=== PATIENT | female | born 1990 | race Caucasian/White ===

== ENCOUNTER 2016-11-07 11:34 | Emergency (ER) | payer SELFPAY ==
[2016-11-07 11:46] VITALS: BP 102/64
--- NOTE | 2016-11-07 11:47 | ER Document Report ---
ED Medical Screen (RME) - General Stated Complaint: SKIN PROBLEM Mode of Arrival: Ambulatory Information source: Patient Notes: Pt presents to the emergency department with reports of 3 abscesses two in between her breast and one on her left buttocks for the past week. Patient denies history of MRSA. I have greeted and performed a rapid initial assessment of this patient. A comprehensive ED assessment and evaluation of the patient, analysis of test results and completion of the medical decision making process will be conducted by additional ED providers. Physical Exam - Vital signs Vitals: Temp Pulse Resp BP Pulse Ox 98.7 F 95 14 102/64 98 11/07/16 11:45 11/07/16 11:45 11/07/16 11:45 11/07/16 11:45 11/07/16 11:45 Course - Vital Signs Vital signs: Temp Pulse Resp BP Pulse Ox 98.7 F 95 14 102/64 98 11/07/16 11:45 11/07/16 11:45 11/07/16 11:45 11/07/16 11:45 11/07/16 11:45
--- NOTE | 2016-11-07 13:04 | ER Document Report ---
ED Skin Rash/Insect Bite/Abscs - General Chief Complaint: Abscess Stated Complaint: SKIN PROBLEM Mode of Arrival: Ambulatory Notes: Patient is a 26 old female presents emergency Department with complaints of boil on her breast as well as her left buttock patient states that she has had a history of abscess under the left axilla which required surgical removal by a surgeon couple years ago. She states that the area on her breast has been there for about a week and is been draining on its own. On her buttocks and there for about 3 days increasing in size and pain. Denies any past medical or past surgical history. TRAVEL OUTSIDE OF THE [place] IN LAST 30 DAYS: No - Related Data Allergies/Adverse Reactions: tramadol Allergy (Verified 11/07/16 11:49) Past Medical History - General Information source: Patient - Social History Smoking Status: Current Every Day Smoker Chew tobacco use (# tins/day): Yes Family History: Reviewed & Not Pertinent Patient has suicidal ideation: No Patient has homicidal ideation: No Renal/ Medical History: Denies: Hx Peritoneal Dialysis Review of Systems - Review of Systems Constitutional: No symptoms reported EENT: No symptoms reported Cardiovascular: No symptoms reported Respiratory: No symptoms reported Gastrointestinal: No symptoms reported Genitourinary: No symptoms reported Female Genitourinary: No symptoms reported Musculoskeletal: No symptoms reported Skin: See HPI Hematologic/Lymphatic: No symptoms reported Neurological/Psychological: No symptoms reported Physical Exam - Vital signs Vitals: Temp Pulse Resp BP Pulse Ox 98.7 F 95 14 102/64 98 11/07/16 11:45 11/07/16 11:45 11/07/16 11:45 11/07/16 11:45 11/07/16 11:45 - Notes Notes: PHYSICAL EXAM GENERAL: Alert, interacts well. LUNGS: Clear to auscultation bilaterally, no wheezes, rales, or rhonchi. No respiratory distress. HEART: Regular rate and rhythm. No murmurs, gallops, or rubs. ABDOMEN: Soft, nondistended, nontender. No guarding, rebound, or rigidity.. Bowel sounds present in all 4 quadrants. EXTREMITIES: Moves all 4 extremities spontaneously. No edema, radial and dorsalis pedis pulses 2/4 bilaterally. No cyanosis. NEUROLOGICAL: Alert and oriented x4. Normal speech. PSYCH: Normal affect, normal mood. SKIN: Warm, dry, normal turgor. No rashes or lesions noted. - Genitourinary Female anatomy: 1 - abscess [id number] - Skin Location of irregularity: Chest - small draining area indurated, no fluctuance, mildly tender, scant drainage Course - Re-evaluation Re-evalutation: 11/07/16 14:41 Patient is a 26 female presents emergency Department with concerns for abscesses. Has a draining area on her chest that did not require I&D. Area within the left groin was incision and drained with minimal drainage irrigated with 30 mL of normal saline. Dressed with clean dry sterile dressing. Discussed with her care post I&D. Can follow-up with primary care - Vital Signs Vital signs: Temp Pulse Resp BP Pulse Ox 98.7 F 95 14 102/64 98 11/07/16 11:45 11/07/16 11:45 11/07/16 11:45 11/07/16 11:45 11/07/16 11:45 Procedures - Incision and Drainage Left Groin Type: Simple Anesthetic type: 1% Lidocaine mL's of anesthetic: 3 Blade size: 11 I&D procedure: Betadine prep applied Incision Method: Incision made with needle Amount/type of drainage: 2cc Discharge - Discharge Clinical Impression: Abscess Condition: Good Disposition: HOME, SELF-CARE Instructions: Abscess ([facility]), Cephalexin ([facility]), Post Incision and Drainage Prescriptions: Cephalexin Monohydrate [Keflex 500 mg Capsule] 500 mg PO QID #20 capsule Referrals: NICOLE LAST MD [ACTIVE STAFF] - Follow up as needed
[2016-11-07] MEDS ORDERED: LIDOCAINE 1% INJ-PF (10 MG/ML) 30 ML SDV INJ ONE (13:20)
== END 2016-11-07 14:56 | disposition home or self-care (01) ==
LOC: ER 11:34
PROC: 0H97XZZ Drainage of Abdomen Skin, External Approach (ICD-10-PCS; principal; 2016-11-07)
DX: L02.214 Cutaneous abscess of groin (principal); L02.213 Cutaneous abscess of chest wall; F17.210 Nicotine dependence, cigarettes, uncomplicated
CPT/HCPCS: 99283

== ENCOUNTER 2017-02-10 16:03 | Emergency (ER) | payer SELFPAY ==
[2017-02-10] MEDS ORDERED: OXYCODONE-ACETAMINOPHEN 5-325 MG TABLET PO ONE (16:19)
[2017-02-10] MEDS ORDERED: CEPHALEXIN 500 MG CAPSULE PO ONE (16:19)
[2017-02-10] MEDS ORDERED: LIDOCAINE 1% INJ-PF (10 MG/ML) 30 ML SDV INJ ONE (16:19)
--- NOTE | 2017-02-10 16:20 | ER Document Report ---
ED Skin Rash/Insect Bite/Abscs - General Chief Complaint: Abscess Stated Complaint: POSSIBLE ABSCESS/BUTT Time Seen by Provider: 02/10/17 16:13 Mode of Arrival: Ambulatory Information source: Patient TRAVEL OUTSIDE OF THE [place] IN LAST 30 DAYS: No - HPI Patient complains to provider of: Tender/swollen area - right groin Onset: Other - 3 days ago Onset/Duration: Gradual - Over the past 3 days, has been responding to heat but then returns and increases in size and tenderness. Quality of pain: Pressure, Throbbing Skin Character: Abscess Skin Temperature: Hot Quality of rash: Painful Identify cause: No Relieved by: Denies Similar symptoms previously: Yes - history of abscess that required I&D in October 2016 - Related Data Allergies/Adverse Reactions: tramadol Allergy (Verified 11/07/16 11:49) Past Medical History - Social History Smoking Status: Current Every Day Smoker Family History: Reviewed & Not Pertinent Patient has suicidal ideation: No Patient has homicidal ideation: No Renal/ Medical History: Denies: Hx Peritoneal Dialysis Review of Systems - Review of Systems Constitutional: No symptoms reported Cardiovascular: No symptoms reported Respiratory: No symptoms reported Gastrointestinal: No symptoms reported Skin: See HPI -: Yes All other systems reviewed and negative Physical Exam - Vital signs Vitals: Temp Pulse Resp BP Pulse Ox 98.3 F 96 16 104/64 97 02/10/17 16:04 02/10/17 16:04 02/10/17 16:04 02/10/17 16:04 02/10/17 16:04 - General General appearance: Appears well, Alert In distress: None - Abdominal Inspection: Normal Distension: No distension Bowel sounds: Normal Tenderness: Nontender Organomegaly: No organomegaly - Genitourinary External exam: Normal - Extremities General upper extremity: Normal inspection, Nontender, Normal color, Normal ROM , Normal strength, Normal temperature General lower extremity: Normal inspection, Nontender, Normal color, Normal ROM , Normal strength, Normal temperature, Normal weight bearing - Neurological Neuro grossly intact: Yes - Skin Skin irregularity: Abscess Location of irregularity: Other - right groin Character of irregularity: Erythematous Irregularity with: Swelling, Tenderness, Warmth, Induration, Inflammation Course - Re-evaluation Re-evalutation: 02/10/17 18:53 26-year-old female who is hemodynamic stable, no acute distress afebrile. Presentation consistent with abscess. I&D performed at the bedside for purulent material sent for culture. Patient sent home on pain medications and antibiotics and told to follow-up with primary care. - Vital Signs Vital signs: Temp Pulse Resp BP Pulse Ox 98.3 F 94 18 104/65 98 02/10/17 16:04 02/10/17 17:44 02/10/17 17:44 02/10/17 17:44 02/10/17 17:44 Procedures - Incision and Drainage Right Groin Type: Simple Anesthetic type: 1% Lidocaine mL's of anesthetic: 4 Blade size: 11 I&D procedure: Betadine prep applied Incision Method: Incision made by scalpel Amount/type of drainage: 10cc purulent drainage Female anatomy: 1 - abscess Discharge - Discharge Clinical Impression: Abscess Condition: Good Disposition: HOME, SELF-CARE Additional Instructions: ABSCESS: You have an abscess (boil). This a pus-forming infection, usually due to staph. Some boils may be left to drain on their own, but most require lancing. From the time the tender lump first appears, it may be three or four days before the abscess is ready to carmelo. Local heat and rest help at this stage of treatment. An antibiotic may prevent spread of the infection. Once the abscess is opened, packing may be placed into it. This is done so pus is not sealed inside by premature closure of the cavity. The packing will be removed at your follow-up visit or you may be advised to remove it yourself at home. Sometimes this packing must be replaced a few times during healing. The wound will heal with surprisingly little scar. Depending on the size and location of an abscess, healing can take one to four weeks. You may shower and wash the area around the incision site two or three times a day. Antibiotics may be prescribed, but are usually not necessary after an abscess has been drained. If you develop fever, chills, worsening pain, or increasing swelling in the area, call the doctor or return immediately. POST INCISION AND DRAINAGE: You have had an incision made to allow drainage of an abscess. The incision must remain open so that pus and debris can drain from the wound. If the abscess cavity is large, packing is placed. This keeps the tissues from collapsing and trapping pus inside, while the body shrinks the cavity. The packing may need to be replaced every day or two. The physician will instruct you on the packing. Keep a bulky dressing over the area. Replace it if it becomes saturated with blood or pus. Do not disturb the packing (if present). You may shower and cleanse the area with gentle soap and warm water two or three times a day. Local warmth may be soothing, and may promote faster healing. Return if you develop high fever or chills, or if you note spreading redness, increasing swelling, or increasing tenderness. ORAL NARCOTIC MEDICATION: You have been given a prescription for pain control. This medication is a narcotic. It's best taken with food, as nausea can result if taken on an empty stomach. Don't operate machinery or drive within six hours of taking this medication. Do not combine this medicine with alcohol, or with any medication which can cause sedation (such as cold tablets or sleeping pills) unless you get permission from the physician. Narcotics tend to cause constipation. If possible, drink plenty of fluids and eat a diet high in fiber and fruits. CEPHALEXIN: The antibiotic you've been prescribed is a member of the cephalosporin class. This type of antibiotic covers a wide variety of infections, including those of the skin, lungs, and urinary tract. It's useful for staph infections. This antibiotic is slightly similar to the penicillin family. In rare cases , a person who is allergic to penicillin will also be allergic to this medication. If you have had a severe allergic reaction to penicillin, and have not taken this antibiotic since that time, notify your doctor. Antibiotics which cover many germs ("broad spectrum" antibiotics) are more likely to cause diarrhea or "yeast" infections. Women prone to vaginal yeast problems may suffer an attack after taking this antibiotic. In infants, oral thrush (white spots "stuck" on the cheek) or yeast diaper rash may result. See your doctor if these problems occur. Call at once if you develop itching, hives , shortness of breath, or lightheadedness. FOLLOW-UP CARE: Most simple abscesses will not require a follow up visit. If you had packing placed in the abscess, remove it as instructed by the physician. If you have been referred to a physician for follow-up care, call the physicians office for an appointment as you were instructed or within the next two days. If you experience worsening or a significant change in your symptoms, return to the Emergency Department at any time for re-evaluation. Prescriptions: Cephalexin Monohydrate [Keflex 500 mg Capsule] 500 mg PO QID #20 capsule Forms: Return to Work [facility] [NO LOCAL MD] - Follow up as needed
[2017-02-10] MEDS ORDERED: HYDROCODONE/ACETAMINOPHEN 5-325 MG 6 TAB/DSPK PO PRN (17:05)
[2017-02-10 17:45] VITALS: BP 104/65
== END 2017-02-10 17:43 | disposition home or self-care (01) ==
LOC: ER 16:03
PROC: 0Y953ZZ Drainage of Right Inguinal Region, Percutaneous Approach (ICD-10-PCS; principal; 2017-02-10)
DX: L02.214 Cutaneous abscess of groin (principal); Z88.5 Allergy status to narcotic agent; F17.200 Nicotine dependence, unspecified, uncomplicated
CPT/HCPCS: 99283; 87070; 87205; 87075; 87077; 10060; J3490